=== PATIENT | female | born 1995 | race Caucasian/White ===

== ENCOUNTER 2017-11-03 20:15 | Emergency (ER) | payer BC ==
[~2017-11-03] VITALS: Ht 172.7 cm; Wt 58.1 kg
[2017-11-03] MEDS ORDERED: NORG1TAB74 PO (20:27)
[2017-11-03] MEDS ORDERED: PROP20TA56 PO (20:27)
[2017-11-03 20:28] VITALS: BP 129/101
[2017-11-03] MEDS ORDERED: DEPRESSION (20:28)
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
[2017-11-03 21:28] LABS: PLATELET COUNT, AUTOMATED 265 K/uL (150-450)
[2017-11-03] MEDS ORDERED: TRIMETH/SULFA DS 160-800MG TAB PO ONE (22:50)
== END 2017-11-03 23:18 ==
LOC: ER 20:57
DX: S61.511A Laceration without foreign body of right wrist, initial encounter (principal); X78.1XXA Intentional self-harm by knife, initial encounter; F33.1 Major depressive disorder, recurrent, moderate
CPT/HCPCS: 36415; 80305; 80320; 80329; 81001; 81025; 82040; 82247; 82310; 82374; 82435; 82565; 82947; 83735; 84075; 84132; 84155; 84295; 84443; 84450; 84460; 84520; 85025; 87088; 99285

== ENCOUNTER 2017-11-03 22:49 | Inpatient (IN) | payer BC ==
[~2017-11-03] VITALS: Ht 167.6 cm; Wt 58.1 kg
[~2017-11-03 22:49] MED LIST: DEPRESSION; NORG1TAB74 PO; PROP20TA56 PO
[2017-11-03] MEDS ORDERED: diphenhydrAMINE 25 MG CAP PO PRN (23:30)
[2017-11-03] MEDS ORDERED: MAG HYD/AL HYD/SIMETH 30ML UDC PO PRN (23:30)
[2017-11-03] MEDS ORDERED: ACETAMINOPHEN 325 MG TAB PO PRN (23:30)
[2017-11-03] MEDS ORDERED: PROPRANOLOL HCL 20 MG TAB PO SCH (23:35)
[2017-11-04 06:26] VITALS: BP 110/60
[2017-11-04] MEDS ORDERED: PROPRANOLOL HCL 20 MG TAB PO SCH (09:00)
[2017-11-04] MEDS ORDERED: MULTIVITAMINS TAB PO SCH (09:00)
[2017-11-04 12:45] VITALS: BP 92/62
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
== END 2017-11-04 14:30 | disposition home or self-care (01) | DRG 882 ==
LOC: BHS 22:49
PROVIDERS: ADMIT Nurse Practitioner Psychiatric/Mental Health; ATTEND Nurse Practitioner Psychiatric/Mental Health
DX: F43.23 Adjustment disorder with mixed anxiety and depressed mood (principal); F12.90 Cannabis use, unspecified, uncomplicated; F43.10 Post-traumatic stress disorder, unspecified; T76.21XS Adult sexual abuse, suspected, sequela; S61.511A Laceration without foreign body of right wrist, initial encounter; X78.1XXA Intentional self-harm by knife, initial encounter; Z53.29 Procedure and treatment not carried out because of patient's decision for other reasons; Z91.011 Allergy to milk products; Z91.5 Personal history of self-harm
CPT/HCPCS: Q0163